=== PATIENT | female | born 1995 | race Hispanic/Latino ===

== ENCOUNTER 2019-08-10 20:43 | Emergency (ER) | payer OTHER ==
[~2019-08-10] VITALS: Ht 152.4 cm; Wt 77.3 kg
[2019-08-10] MEDS ORDERED: ACETAMINOPHEN TAB 650MG DOSE (2X325MG) PO ONE (21:30)
[2019-08-10] MEDS ORDERED: LIDOCAINE VISCOUS 2% SOLN 15ML UDC SS ONE (21:30)
[2019-08-10] MEDS ORDERED: ZITH500T PO (21:54)
[2019-08-10 22:12] VITALS: BP 129/68
== END 2019-08-10 22:16 | disposition home or self-care (01) ==
LOC: M ED 20:43
DX: J02.9 Acute pharyngitis, unspecified (principal)

== ENCOUNTER 2020-05-11 22:53 | Inpatient (IN) | payer OTHER ==
[~2020-05-11] VITALS: Ht 177.8 cm; Wt 88.4 kg
[~2020-05-11 22:53] MED LIST: ACTI300C PO; BENA25CA4 PO; PRENTAB9 PO; ZITH500T PO
[2020-05-11 23:19] VITALS: BP 125/72
[2020-05-12] VITALS (41 sets, daily range): BP systolic 97–144; BP diastolic 49–80
[2020-05-12] MEDS ORDERED: PROMETHAZINE INJ 25 MG/ML VIAL (J2550) IV ONE (03:00)
[2020-05-12] MEDS ORDERED: BUTORPHANOL 2 MG/ML INJ (J0595) IV ONE (03:00)
[2020-05-12] MEDS ORDERED: LACTATED RINGER'S 1000 ML IV STA (03:14)
[2020-05-12 03:57] LABS: HEMATOCRIT 36.9 % (36.0-47.0); HEMOGLOBIN 11.9 g/dl (12.0-15.5); MEAN CORPUSCULAR HEMOGLOBIN 28.9 pg (27.0-33.0); MEAN CORPUSCULAR HGB CONC 32.2 g/dl (32.0-36.5); MEAN CORPUSCULAR VOLUME 89.6 fl (80.0-96.0); PLATELET COUNT, AUTOMATED 244 10^3/uL (150-450); RED BLOOD COUNT 4.12 10^6/uL (4.00-5.40); WHITE BLOOD COUNT 9.5 10^3/uL (4.0-10.0)
[2020-05-12] MEDS ORDERED: FENTANYL 2MCG/ML ROPIVACAINE 0.2% IN 0.9% NACL 100ML IVBAG As Ordered ONE (06:35)
--- NOTE | 2020-05-12 07:04 | HPEPDOC ---
Obstetrical History & Physical General Date of Admission May 11, 2020 at 23:51 Primary Care Physician: Oz Lala MD History of Present Illness 23 yo LMP 08/14/19 EDC 05/20 23 AT 39 WEEKS HX CONTRACTIONS . MODERATE INTENSITY. SUSPECTED CHOLESTASIS . NO LOSS OF FLUID NO BLEEDING Chief Complaint: Contractions, term Information Provided By: Patient Age: 23 : 1 Term: 0 Pre-term: 0 Abortions: 0 Livin Care Care: Good Care Number of Visits: 5 Dating Final EDC: May 20, 2020 Final EDC for Daily Update: May 20, 2020 Final EDC by: LMP LMP: Aug 14, 2019 1st Trimester Date: Nov 21, 2019 Weeks + Days: 13.6 Estimated Date of Confinement: May 20, 2020 EGA at Admission: 39.0 Antepartum Course Diagnos(e)s 39 WEEKS ACTIVE LABOR . 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 CHEF History: No pertinent history Past Medical History Medical History NON CONTRIBUTORY Surgical History: Denies/None Family History Significant Family History: No pertinent family hx Social History Marital Status: Family situation: Spouse/partner home Psychosocial History: No pertinent psych hx * Smoker: non-smoker Alcohol: Denies Drugs: denies Abuse Violence Screening Have you been hit/kicked/slapp: No Have you been sexually assault: No Imunizations Tdap status: current Influenza Status: current Allergies Coded Allergies: No Known Allergies (Unverified , 08/10/19) Medications Scheduled Diphenhydramine HCl (Benadryl) 25 Mg Capsule, 1 CAP PO QPM No.137/Iron/Folic Acd ( Vitamin Tablet) 1 Each Tablet, 1 TAB PO DAILY Ursodiol (Actigall) 300 Mg Capsule, 1 CAP PO BID Physical Examination Physical Examination GENERAL: Alert and oriented times three. BREAST: . ABDOMEN: Gravid and non-tender to touch. FETUS: Is vertex (VTX) by sterile vaginal examination (SVE), fetus is vertex (VTX) by [place]. HEART RATE: Regular rate and rhythm. LUNGS: Clear to auscultation (CTA). EXTREMITIES: No edema. No clonus. Deep tendon reflexes (DTRs) NORMAL. Other physical findings DISTRESSED MODERATE CONTRACTIONS SF HEIGHT 40 VERTEX BOWEL SOUNDS ACTIVE Laboratory Data 24H LABS Laboratory Tests 2 05/11/20 23:37: Nucleated Red Blood Cells % (auto) 0.0 05/11/20 23:54: Serology Scanned Report Hepatitis B Testing CBC/BMP Laboratory Tests 05/11/20 23:37 Pertinent Laboratoy Data Blood Type: O+ RBC Antibody Screen: Negative HIV: Negative Hepatitis B: Negative Rapid Plasma Reagin: Nonreactive Rubella: Immune Varicella: Nonreactive Chlamydia/Gonorrhea: Negative Group B Streptococcus: Negative Cystic Fibrosis: Negative Anatomy Ultrasound Placenta Location: Anterior Normal Anatomy: Yes Steroid Therapy Steroid Therapy: No Vaginal Examination Dilation: 5 cm Effacement: 100% Station: -1 Cervical Consistency: Soft Cervical Position: Middle Presentation: Cephalic presentation Position: Vertex (occiput) Assessment Variability: Moderate Accelerations: Present Decelerations: None Tocometer Contractions: Yes Frequency: regular, greater than 9 min/apart Duration: less than 60 seconds Strength: palpated as moderate Assessment/Plan Assessment 23-year-old (G)1 para (P1 at 39 weeks by 13.6 week ultrasound. Presents to Labor and Delivery IN LABOR . Plan Admit and orient. [employer] and consent. Diet: NPO Group B Streptococcus (GBS) [negative]. Labs and intravenous (IV) per unit protocol. Counseled on Pitocin and induction of labor (IOL). Lactated Ringers (LR): Bolus mL, then at mL/hr. Anticipate [normal spontaneous delivery ()]. C-S as appropriate. Labor and Delivery Counseling REVIEWED LABOR RISKS HEMORRHAGE INFECTION PERFORATION . WITH VAGINAL DELIVERY RISK OF TEARS TO VAGINA URETHRA, RECTUM OR BOWEL NEED REPAIR. RISK OF PITOCIN TACHYSYSTOLE INCREASE RISK C/S. FOR OR MATERNAL INDICATIONS . USE OF VACUUM OR FORCEPS HEMATOMA SUBDURAL OR CEPHALOHEMATOMA NOW CATEGORY 1 STRIP REQUESTING EPIDURAL SAFE TO PROCEED VITAL SIGNS VITAL SIGNS Vital Signs Label Value Date Time Pulse 72 05/12/20 0529 Blood Pressure Assessment 117/58 (77) 05/12/20 0529 Source Automatic Cuff (NIBP) Oz Lala MD May 12, 2020 06:55
[2020-05-12] MEDS: LR 1,000 ML IV SCH ×2 (07:18→18:17)
[2020-05-12] MEDS ORDERED: EPIDURAL/PCA KEYS XX PRN (07:30)
[2020-05-12] MEDS ORDERED: NALOXONE INJ 0.4MG/1ML VIAL (J2310 PER 1MG) IV PRN (07:30)
[2020-05-12] MEDS ORDERED: ONDANSETRON 4MG/2ML VIAL IV PRN (07:30)
[2020-05-12] MEDS ORDERED: REFRIGERATOR IV KEYS XX PRN (07:30)
[2020-05-12] MEDS ORDERED: LACTATED RINGER'S 1000 ML IV PRN (07:30)
[2020-05-12] MEDS ORDERED: EPIDURAL COMMENT XX SCH (07:30)
[2020-05-12] MEDS ORDERED: diphenhydrAMINE 50MG/ML VIAL (J1200) IV PRN (07:30)
[2020-05-12] MEDS: FENTANYL/ROPIVACAINE/NACL BAG 100 ML EPIDURAL SCH ×2 (07:57→19:38)
--- NOTE | 2020-05-12 11:20 | IPNPDOC ---
Obstetrical Progress Note Date of Service May 12, 2020 Subjective Pt c/o increased pain at change of shift initially after epidural placement. Stated feeling well several hours after placement. Objective Vital Signs Date Time Temp Pulse Resp B/P (MAP) Pulse Ox O2 Delivery O2 Flow Rate FiO2 05/12/20 10:33 98.3 81 16 100 05/12/20 10:18 115/56 (75) 05/12/20 07:30 Room Air Assessment Heart Rate (FHR): 14 Variability: Minimal to moderate Accelerations: Positive Decelerations: None Heart Rate Tracing: Category I Tocometer Contractions: Yes Frequency: every 2-5 min. Duration: greater than 60 seconds Strength: palpated as moderate, resting tone palp/soft Sterile Vaginal Examination Dilation: 6 cm (AROM with exam, meconium stained fluid) Effacement (%): 100% Station: -2 Cervical Consistency: Soft Cervical Position: Posterior Postion/Presentation: Cephalic presentation Assessment and Plan Age: 24 : 1 Term: 0 Pre-term: 0 Abortions: 0 Livin Status: Reassuring Group B Streptococcus: Negative Anticipate: Vaginal Delivery Additional Comments Meconium stained amniotic fluid noted with AROM. Pt counseling reviewed for Pitocin augmentation, pt consents LR @125ml/hr, continuous efm x2, initiate pitocin augmentation and titrate per protocol, monitor for change in or maternal status, reposition frequently, evaluate for change as indicated, anticipate vaginal delivery ZION JACQUES CNM May 12, 2020 11:20
[2020-05-12] MEDS ORDERED: OXYTOCIN DRIP 30 UNITS in IV 1 EA IV SCH ×2 (11:45→18:53)
[2020-05-12] MEDS: ePHEDrine SULFATE 25 MG/5 ML(5MG/ML) SYRINGE IV PRN ×2 (14:25→14:33)
--- NOTE | 2020-05-12 16:14 | IPNPDOC ---
Obstetrical Progress Note Date of Service May 12, 2020 Subjective Pt states feeling more frequent pressure and shivering Objective Vital Signs Date Time Temp Pulse Resp B/P (MAP) Pulse Ox O2 Delivery O2 Flow Rate FiO2 05/12/20 15:35 99.2 112 18 Room Air 05/12/20 12:29 110/52 (71) 100 Assessment Heart Rate (FHR): 130 Variability: Other (monitor repositioned) Tocometer Contractions: Yes Frequency: every 2-5 min. (on 10mu pitocin) Duration: greater than 60 seconds Strength: palpated as moderate Sterile Vaginal Examination Dilation: 8 cm (per nursing staff) Effacement (%): 100% Station: 0 Cervical Consistency: Soft Cervical Position: Middle Postion/Presentation: Cephalic presentation Assessment and Plan Age: 24 : 1 Term: 0 Pre-term: 0 Abortions: 0 Livin Status: Reassuring Group B Streptococcus: Negative Anticipate: Vaginal Delivery Additional Comments Lr@125 ml/hr, continue to titrate pitocin per protocol, monitor for change in or maternal status, evaluate for change as indicated, anticipate vaginal delivery ZION JACQUES CNM May 12, 2020 16:14
[2020-05-12] MEDS ORDERED: ACETAMINOPHEN 325 MG TAB PO ONE (17:30)
[2020-05-12] MEDS ORDERED: AMPICILLIN 2 GM VIAL (J0290 PER 500MG) As Ordered ONE (18:27)
[2020-05-12] MEDS ORDERED: AMPICILLIN SOD 2 GM in D5W MINI-BAG PLUS 100 ML IV ONE (18:30)
[2020-05-12] MEDS ORDERED: DOCUSATE SODIUM 100MG CAPSULE PO PRN (19:00)
[2020-05-12] MEDS ORDERED: BENZOCAINE 20% HEMORRHOIDAL OINTMENT 28GM TUBE TOP PRN (19:00)
[2020-05-12] MEDS ORDERED: MEASLES,MUMPS,RUBELLA VACCINE INJ (MMR-II) (90707) SC SCH (19:00)
[2020-05-12] MEDS ORDERED: METHYLERGONOVINE MALEATE 0.2 MG TAB PO PRN (19:00)
[2020-05-12] MEDS ORDERED: ACETAMINOPHEN TAB 650MG DOSE (2X325MG) PO PRN (19:00)
[2020-05-12] MEDS ORDERED: RHOGAM 300 MCG (1500 IU) INJ (J2790) IM SCH (19:00)
[2020-05-12] MEDS ORDERED: GENTAMICIN IV ONE (20:30)
[2020-05-12] MEDS ORDERED: D5W IV ONE (20:30)
--- NOTE | 2020-05-12 21:29 | DNPDOC ---
[facility] Delivery Note Delivery Note DATE OF DELIVERY: 12May2020 PREDELIVERY DIAGNOSIS: 38-6/7 weeks' gestation and labor. POST DELIVERY DIAGNOSIS: Delivered. PROCEDURE: Spontaneous vaginal delivery. APRON OPERATOR: Cee Jacques CNM ANESTHESIA: Epidural. ESTIMATED BLOOD LOSS: mL. FINDINGS: 7 pound 4 ounce male infant Clive, Score 8/8, no nuchal. DELIVERY SUMMARY: Patient is a 24-year-old 1 now para 1 who was admitted to labor and delivery for labor on . Pt progressed to C/C/+2 with augmentation. Labor course was complicated by Meconium stained amniotic fluid and chorioamnionitis. Dr Oliver was called for consultation after 2 hours and 15 minutes of pushing with the head not progressing beyond +3 station. Upon arrival of the physician to the room the head rapidly progressed to and no assistance for delivery was necessary. The infant delivered in OA with restitution to PAULA. The left anterior shoulder delivered easily followed by the posterior shoulder and corpus and was placed immediately skin to skin on the maternal abdomen where he was dried and stimulated. The cord was clamped x2 after one minute delay and cut y the FOB. Pitocin infusion was initiated per protocol. Dr. Oliver assumed care for the delivery of the placenta and repair of a second degree laceration. ADDENDUM by Dr. Oliver Patient had a 2nd degree laceration that was repaired in the usual fashion with a 2-0vicryl and the she hymnal right tear that was approximated with a figure of eight using a 3-0 monocryl. she had a very row and swollen vaginal mucosa and she was given 10ml of lidocaine for additional pain control during my repair. hemostasis was achieved. at time of my departure, patient and baby were doing well, EBL 400ML CEE JACQUES CNM May 12, 2020 21:29 SULAIMAN OLIVER MD May 13, 2020 05:16
[2020-05-13] MEDS ORDERED: AMPICILLIN SOD 2 GM in D5W MINI-BAG PLUS 100 ML IV SCH ×2
[2020-05-13] MEDS: IBUPROFEN 800 MG TAB PO PRN (05:17)
[2020-05-13] MEDS: METHYLERGONOVINE MALEATE 0.2 MG TAB PO SCH ×4 (05:20→22:55)
[2020-05-13] MEDS: PERCOCET 5MG/325MG TAB PO PRN ×2 (05:21→17:26)
--- NOTE | 2020-05-13 05:25 | IPNPDOC ---
Progress Note Date of Service: May 13, 2020 Day#: 1 Progress Note SUBJECT: LEXI is a 24-year-old 1 now Para 1 status post uncomplicated spontaneous vaginal delivery at 38-6/7 weeks of 7 pound 4 ounce male Clive, Score 8/8, no nuchal with post vaginal laceration and repair, doing well day # 1. she had chorio diagnosed during pushing and she was started on AMP AND GENT. LAST FEVER was last night while pushing. She has been ambulating, voiding spontaneously without issue and tolerating regular diet. Breast feeding without issue. Reports lochia is minimal while in bed and has large gushes when she ges to the bathroom and breastfeeds. OBJECTIVE: VITAL SIGNS: Within normal limits, afebrile. Alert and oriented times three. normal work work of breathing Heart rate: Regular rate and rhythm Abdomen: Fundus firm at U-2. moderate fundal tenderness. ASSESSMENT: LEXI is a 24-year-old 1 now Para 1 status post uncomplicated spontaneous vaginal delivery at 38-6/7 weeks of 7 pound 4 ounce male infant Clive, Score 8/8, no nuchal with post vaginal laceration and repair, doing well day # 1. she had chorio diagnosed during pushing and she was started on AMP AND GENT. LAST FEVER was last night while pushing.Vitals within normal limits, afebrile, hemodynamically stable with no evidence of infection. PLAN: 1. Discharge to home tomorrow 2. Start on methergine series this morning due to moderate bleeding with movements and 3. Continue amp and gent for 24hrs after last fever 4. Tylenol and Motrin for pain, add oxycodone 5 mg for severe pain as needed 5. Encourage breast feeding and ambulation. 6. nexplanon for contraception 5. Routine PP visit in 6 weeks in clinic. 6. Discussed return precautions at length. VS, I&O, 24H, Fishbone Vital Signs/I&O Vital Signs Date Time Temp Pulse Resp B/P (MAP) Pulse Ox O2 Delivery O2 Flow Rate FiO2 05/12/20 22:29 102 115/66 (82) 05/12/20 21:28 98.5 05/12/20 19:00 20 05/12/20 17:00 100 05/12/20 15:35 Room Air I&O- Last 24 Hours up to 6 AM 05/13/20 06:00 Intake Total 4250 ml Output Total 1700 ml Balance 2550 ml SULAIMAN OLIVER MD May 13, 2020 05:25
[2020-05-13 06:00] VITALS: BP 108/62
[2020-05-13] MEDS ORDERED: LIDOCAINE 1% MDV 20ML VIAL As Ordered ONE (06:55)
[2020-05-13] MEDS: PRENATAL VITAMINS CHEWABLE TABLET PO SCH (07:37)
[2020-05-13] MEDS: AMPICILLIN SOD 2 GM in D5W MINI-BAG PLUS 100 ML IV SCH ×3 (07:37→18:38)
[2020-05-13] MEDS ORDERED: INFLUENZA QUADRIVALENT PF VACCINE 0.5ML SYRINGE IM ONE (09:00)
[2020-05-13] MEDS ORDERED: SLF 3 ML SYR IV PRN (12:30)
[2020-05-13] MEDS: SLF 3 ML SYR IV SCH ×2 (14:21→20:28)
[2020-05-13 18:00] VITALS: BP 111/61
[2020-05-13] MEDS ORDERED: GENTAMICIN IV ONE (20:00)
[2020-05-13] MEDS ORDERED: D5W IV ONE (20:00)
[2020-05-13 22:51] VITALS: BP 129/68
[2020-05-14] MEDS: AMPICILLIN SOD 2 GM in D5W MINI-BAG PLUS 100 ML IV SCH (01:01)
[2020-05-14] MEDS: IBUPROFEN 800 MG TAB PO PRN ×3 (01:14→22:57)
[2020-05-14 02:00] VITALS: BP 113/60
[2020-05-14] MEDS: SLF 3 ML SYR IV SCH (05:47)
[2020-05-14 06:00] VITALS: BP 127/69
--- NOTE | 2020-05-14 07:37 | IPNPDOC ---
Progress Note Date of Service: May 14, 2020 Progress Note Jerilyn is a 24 yo G1 now P1 who underwent an uncomplicated late in the evening on 12May2020. She developed chorioamnionitis before delivery and required abx. She has received 24 hours of gent and ampicillin. Infant is in the NICU due to chorioamnionitis. This morning Jerilyn reports feeling better. Her uterine tenderness is much improved. She is ambulating, voiding, tolerating a regular diet, and has minimal lochia. Vitals - VSS, afebrile, normotensive, non tachycardic General - AAOX3, sitting up in chair at bedside, NAD Abdomen - Fundus firm at U-2. No significant fundal tenderness Extremities - No edema Jerilyn is doing well this morning. Will stop abx this morning. Likely will be able to discharge home tomorrow with if she remains afebrile. Will continue routine care. All patient questions answered. Leslie Cuevas DO VS, I&O, 24H, Fishbone Vital Signs/I&O Vital Signs Date Time Temp Pulse Resp B/P (MAP) Pulse Ox O2 Delivery O2 Flow Rate FiO2 05/14/20 06:00 97.3 74 16 127/69 (88) 100 Room Air LESLIE CUEVAS DO May 14, 2020 07:37
[2020-05-14 10:00] VITALS: BP 127/63
[2020-05-14] MEDS: PRENATAL VITAMINS CHEWABLE TABLET PO SCH (11:03)
[2020-05-14 14:00] VITALS: BP 123/60
[2020-05-14 18:00] VITALS: BP 101/55
[2020-05-14 22:00] VITALS: BP 138/72
[2020-05-15 02:00] VITALS: BP 111/62
[2020-05-15 05:40] VITALS: BP 109/54
[2020-05-15] MEDS ORDERED: DOK1CAP7 PO (06:59)
--- NOTE | 2020-05-15 09:48 | DSES ---
DISCHARGE SUMMARY DATE OF ADMISSION: 05/11/2020 DATE OF DISCHARGE: 05/15/2020 BRIEF HISTORY: This lady is a 24-year-old 1, now para 1, admitted at 39 weeks with contractions. She had an epidural in place, delivered a male infant, 7 pounds 4 ounces, scores of 8 and 8 and one and five minutes respectively. She had a second degree tear which was repaired in the usual fashion. Baby was in the intensive care unit (NICU) because of questionable chorioamnionitis. We discussed phlebitis, cystitis, mastitis, endometritis, cellulitis, diet, exercise, pain management, perineal, breast and wound care. On discharge, hemoglobin was 11.9, hematocrit 36.9 and platelets were 244. PHYSICAL EXAMINATION: Discharge blood pressure was 109/54, respirations 16, pulse 73, temperature 98.1. She has never had an elevated temperature to even 100 degrees Fahrenheit CHEST: Clear bilaterally to bases. No wheezes or rhonchi. No costovertebral angle (CVA) tenderness. ABDOMEN: Soft. Uterus 2 below. Lochia is moderate. Four quadrant bowel sounds are noted. Perineum is healing. No rashes, lesions or pruritus. No arthralgias or myalgias. No complaint of joint pain. No complaint of cough, wheeze, shortness of breath or dyspnea on exertion. No nausea, vomiting, diarrhea or constipation. No urgency or frequency. PLAN OF CARE: supervisor coating her medications at [facility]. checkup in six weeks at [facility]. Baby will be discharged from NICU. At that time, arrangements will be made for baby at [facility]. All questions were answered, 20 minute discussion. 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 FELICIA
== END 2020-05-15 11:35 | disposition home or self-care (01) | DRG 807 ==
LOC: M LDO 22:53 → M LDI 23:51 → M OBS 05-13 01:25
PROVIDERS: ADMIT Obstetrics & Gynecology; ATTEND Obstetrics & Gynecology
PROC: 10E0XZZ Delivery of Products of Conception, External Approach (ICD-10-PCS; principal; 2020-05-12)
PROC: 0KQM0ZZ Repair Perineum Muscle, Open Approach (ICD-10-PCS; 2020-05-12)
PROC: 10907ZC Drainage of Amniotic Fluid, Therapeutic from Products of Conception, Via Natural or Artificial Opening (ICD-10-PCS; 2020-05-12)
DX: O41.1230 Chorioamnionitis, third trimester, not applicable or unspecified (principal); Z37.0 Single live birth; Z3A.39 39 weeks gestation of pregnancy; O77.0 Labor and delivery complicated by meconium in amniotic fluid; O70.1 Second degree perineal laceration during delivery

== ENCOUNTER 2021-03-18 21:34 | Emergency (ER) | payer OTHER ==
[~2021-03-18] VITALS: Ht 152.4 cm; Wt 91.8 kg
[2021-03-18 21:34] VITALS: BP 130/74
[~2021-03-18 21:34] MED LIST changes: +DOK1CAP4 PO
== END 2021-03-18 22:15 | disposition left against medical advice (07) ==
LOC: M ED 21:34
DX: Z53.21 Procedure and treatment not carried out due to patient leaving prior to being seen by health care provider (principal)